=== PATIENT | female | born 1970 | race Caucasian/White ===

== ENCOUNTER 2019-09-20 16:06 | Outpatient (CLI) | payer BC ==
--- NOTE | 2019-09-20 16:28 | RAD ---
Chest 2 views HISTORY: Left chest wall pain. FINDINGS: Cardiac silhouette and pulmonary vasculature are unremarkable. Mediastinum is midline. No c onfluent airspace consolidation, pneumothorax, or pleural fluid are apparent. IMPRESSION: No active cardiopulmonary abnormalities are demonstrated.
--- NOTE | 2019-09-20 16:45 | RAD ---
RIGHT LEG TWO VIEWS: History: Right leg pain. FINDINGS: The right tibia and fibula are intact. No fracture or bony destruction or periosteal reaction is seen . No radiopaque foreign body is noted. No soft tissue air is seen. IMPRESSION: Unremarkable exam. POS: [facility]
== END 2019-09-20 16:07 | disposition home or self-care (01) ==
LOC: BICRAD 16:06
PROVIDERS: ATTEND Family Medicine
DX: M89.8X6 Other specified disorders of bone, lower leg (principal); R07.9 Chest pain, unspecified
CPT/HCPCS: 36415; 71046; 80053; 80061; 81003; 81015; 83001; 83002; 83036; 84443; 85025; 85652; 86140

== ENCOUNTER 2019-09-27 09:16 | Outpatient (CLI) | payer BC ==
--- NOTE | 2019-09-27 09:57 | RAD ---
Adult bone survey Cervical spine 3 views Skull one view Thoracic spine 2 views Lumbar spine 2 views Right humerus one view Left humerus one view Right forearm one view Left forearm one view AP pelvis one view Right femur one view Left femur one view Right lower leg one view Left lower leg one view HISTORY: Right clavicle pain. Chest pain. Right lower leg pain. Diffuse bone pain. FINDINGS: The right clavicle, the right tibia and fibula have a normal appearance. Straightening of the normal lordotic curvature of the cervical spine is nonspecific. There are 13-type thoracic vertebrae and 5 lumbar type vertebrae. Pedicles are intact. Very mild S sh aped curvature, apex rightward of the thoracic spine and apex leftward of the lumbar spine. Incomplete posterior fusion of the T1 vertebral body. No focal lytic or sclerotic bone lesions evident. Very mild degenerative changes of the hips and sacr oiliac joints. Phleboliths project over the pelvis. IMPRESSION: No acute osseous abnormalities are demonstrated.
== END 2019-09-27 09:17 | disposition home or self-care (01) ==
LOC: BICRAD 09:16
PROVIDERS: ATTEND Family Medicine
DX: R07.9 Chest pain, unspecified (principal); M89.8X1 Other specified disorders of bone, shoulder; R22.9 Localized swelling, mass and lump, unspecified; M89.8X6 Other specified disorders of bone, lower leg
CPT/HCPCS: 36415; 77075; 80076; 83721; 84165